=== PATIENT | female | born 1995 | race Caucasian/White ===

== ENCOUNTER 2017-06-27 03:10 | Emergency (ER) | payer OTHER, SELFPAY ==
[2017-06-27 03:11] VITALS: BP 117/78; PULSE 80; RESP 20; TEMP 36.6; O2SAT 97; BMI 30.1
--- NOTE | 2017-06-27 03:28 | ED.VISSUMM ---
- ER Visit Summary Date of Service: 06/27/17 Chief Complaint: [] Migraine headache History of Present Illness: The patient is a 22 F [] complaining of migraine headache for the last hour. She woke with it after sleep. As a throbbing sensation left frontal region. History of migraines but not since 2015. In that year she got frequent migraines. She was taking abortive therapy in the past but no longer. She started getting migraines at age 15. She noticed some tingling in her right hand that resolved prior to coming in. She has had that in the past with aura. She has never seen a neurologist. She has had no complications with this except for gestational diabetes. No history of preeclampsia. This is her first . She has photophobia and nausea that is mild. Tylenol has helped this evening. Physical Examination: [] Vital signs reviewed General: Well-nourished well-developed Head: Normocephalic atraumatic Eyes: Pupils equal round and reactive to light extraocular movements intact ENT: TMs clear no hemotympanum no trauma Neck: Nontender full range of motion Cardiovascular: Regular rate rhythm no murmurs normal S1-S2 Respiratory: No distress clear to auscultation bilaterally chest nontender Abdomen: Soft nontender nondistended normal bowel sounds no masses Back: Nontender no CVA tenderness Extremities: Nontender active range of motion ?4 extremities no trauma Skin: Normal color no trauma Neuro alert oriented cranial nerves II through XII intact normal strength sensation reflexes Test Results: [] Emergency Department Course and Treatment: [] Given IV fluids Phenergan Benadryl and Compazine. Upon re-Evaluation her headache is almost completely resolved. Blood pressures have remained normal. 117/78. I Have a low suspicion for preeclampsia. I do not feel she needs lab work or CT scan at do not feel she has intracranial hemorrhage. She is resting comfortably. She will follow-up as an outpatient. Discussed with Dr. Marroquin. Turn if she worsens. Treatment Plan: [] Disposition: [] Impression: [] Migraine headache This note was generated with [employer] software. It may contain incorrect words, spelling, and punctuation that were not noted in review of the chart prior to signing ED Disposition - Plan for ED Patient: Chief Complaint: Headache Referrals: Jarvis Amaarl MD [Primary Care Provider] -
[2017-06-27] MEDS: 0.9% Normal Saline 1,000 ML 999 ML IV (03:49)
[2017-06-27] MEDS: DiphenhydrAMINE 50 MG/ML Syringe 25 MG IV (03:50)
[2017-06-27] MEDS: proMETHazine 25 MG/ML Syringe 6.25 MG IV (03:51)
[2017-06-27] MEDS: proCHLORPERazine 10 MG/2 ML Vial IV (03:53)
--- NOTE | 2017-06-27 04:39 | ED.DEP ---
ED Disposition - Plan for ED Patient: Disposition: Home or Assisted Living Chief Complaint: Headache Instructions: ED Headache Migraine Referrals: Jarvis Amaral MD [Primary Care Provider] - Lashonda Marroquin MD [STAFF PHYSICIAN] -
[2017-06-27 04:47] VITALS: BP 127/72; PULSE 90; O2SAT 100
== END 2017-06-27 05:11 | disposition home or self-care (01) ==
PROVIDERS: Emergency Provider Emergency Medicine; Family Provider Family Medicine; PCP Family Medicine
DX: O99.89 Other specified diseases and conditions complicating pregnancy, childbirth and the puerperium (principal); G43.909 Migraine, unspecified, not intractable, without status migrainosus; R20.2 Paresthesia of skin; O24.419 Gestational diabetes mellitus in pregnancy, unspecified control; O99.330 Smoking (tobacco) complicating pregnancy, unspecified trimester; F17.200 Nicotine dependence, unspecified, uncomplicated; Z3A.00 Weeks of gestation of pregnancy not specified
CPT/HCPCS: 96361; 96374; 96375; 99285; J7030; A4216

== ENCOUNTER 2017-06-27 15:48 | Outpatient (RCR) | payer OTHER, MEDICAID, SELFPAY | END 2017-07-01 23:59 | LOC: DC 15:48 | PROVIDERS: Family Provider Family Medicine; PCP Family Medicine; Visit Provider Obstetrics & Gynecology | DX: O24.419 Gestational diabetes mellitus in pregnancy, unspecified control (principal); Z71.3 Dietary counseling and surveillance | CPT/HCPCS: G0108 ==

== ENCOUNTER 2017-07-05 10:40 | Outpatient (RCR) | payer OTHER, MEDICAID, SELFPAY | END 2017-07-19 23:59 | LOC: DC 10:40 | PROVIDERS: Family Provider Family Medicine; PCP Family Medicine; Visit Provider Obstetrics & Gynecology | DX: O24.419 Gestational diabetes mellitus in pregnancy, unspecified control (principal); Z3A.00 Weeks of gestation of pregnancy not specified; Z71.3 Dietary counseling and surveillance | CPT/HCPCS: 97802 ==

== ENCOUNTER → 2017-07-05 17:49 | Outpatient (CLI) | payer OTHER, MEDICAID, SELFPAY | PROVIDERS: Visit Provider Nurse Practitioner Women's Health | DX: Z34.93 Encounter for supervision of normal pregnancy, unspecified, third trimester (principal) | CPT/HCPCS: 87086; 87088 ==

== ENCOUNTER → 2017-07-19 17:55 | Outpatient (CLI) | payer OTHER, MEDICAID, SELFPAY ==
[2017-07-19 20:29] LABS: Chlamydia Trachomatis by PCR Negative (Negative); Neisserai gonorrhoeae by PCR Negative (Negative); Probe Check PASS; Sample Adequacy Control PASS; Specimen Processing Control PASS
== END ==
PROVIDERS: Visit Provider Obstetrics & Gynecology
DX: Z34.93 Encounter for supervision of normal pregnancy, unspecified, third trimester (principal)
CPT/HCPCS: 87491; 87591

== ENCOUNTER → 2017-08-02 18:02 | Outpatient (CLI) | payer OTHER, MEDICAID, SELFPAY ==
[2017-08-02 20:37] LABS: Chlamydia Trachomatis by PCR Negative (Negative); Neisserai gonorrhoeae by PCR Negative (Negative); Probe Check PASS; Sample Adequacy Control PASS; Specimen Processing Control PASS
== END ==
PROVIDERS: Family Provider Family Medicine; PCP Family Medicine; Visit Provider Obstetrics & Gynecology
DX: Z34.93 Encounter for supervision of normal pregnancy, unspecified, third trimester (principal)
CPT/HCPCS: 87491; 87591

== ENCOUNTER → 2017-08-09 14:30 | Outpatient (CLI) | payer OTHER, MEDICAID, SELFPAY ==
--- NOTE | 2017-08-09 14:30 | DT_ITS ---
This patient was seen during an EMR downtime August 05, 2017 - August 12, 2017. This patient may have a combination of paper and electronic documentation or all paper documentation. All documentation is viewable within the e-chart portion of [facility] for each patient visit.
== END ==
PROVIDERS: Visit Provider Obstetrics & Gynecology
DX: Z34.03 Encounter for supervision of normal first pregnancy, third trimester (principal)

== ENCOUNTER → 2017-08-09 16:02 | Outpatient (CLI) | payer OTHER, MEDICAID, SELFPAY ==
--- NOTE | 2017-08-09 16:02 | DT_ITS ---
This patient was seen during an EMR downtime August 05, 2017 - August 12, 2017. This patient may have a combination of paper and electronic documentation or all paper documentation. All documentation is viewable within the e-chart portion of [facility] for each patient visit.
--- NOTE | 2017-08-09 16:06 | US_ITS ---
STUDY: SECOND AND THIRD TRIMESTER OBSTETRICAL ULTRASOUND - LIMITED REASON FOR EXAM: Female, 22 years old. GROWTH...HX OF GES DIABETES LMP: PRIOR ULTRASOUND: None. TECHNIQUE: Transabdominal ultrasound evaluation was performed. FINDINGS: There is a single intrauterine fetus. The fetus is in an transverse lie with the head on the maternal left side. There is demonstrated cardiac activity with a heart rate of 150 bpm. There is a normal amniotic fluid volume. The largest amniotic fluid pocket measures 9.2 cm. The amniotic fluid index (LILIANA) is 12.8 cm. The placenta is anterior in location and is not low lying. There are Grade 2 placental changes. The cervix measures 30 cm in length. BIOMETRY: BPD: 90mm: 36 weeks, 4 days HC: 336mm: 38 weeks, 4 days AC: 336mm: 37 weeks, 4 days FL: 68mm: 35 weeks, 1 days Age by LMP: 36 weeks, 3 days. SHELLY by LMP: 7.3.18. age by current US: 37 weeks, 0 days. SHELLY by current US: 6.29.18. Estimated weight: 3071 grams, +/- 448 grams, 67 percentile. US/OB Limited With Biometrics IMPRESSION: There is a single live intrauterine with a heart rate of 150 bpm. age by current US: 37 weeks, 0 days. SHELLY by current US: 6.29.18. Estimated weight: 3071 grams, +/- 448 grams, 67 percentile. Electronically Signed: Brennen Moreno MD at 22:45 EDT , Service support ,
[2017-08-10 11:11] LABS: Group B Strep DNA By PCR Negative (Negative); Internal Control PASS; Probe Check PASS; Specimen Processing Control PASS
== END ==
PROVIDERS: Family Provider Family Medicine; PCP Family Medicine; Visit Provider Obstetrics & Gynecology
DX: Z34.90 Encounter for supervision of normal pregnancy, unspecified, unspecified trimester (principal); O24.419 Gestational diabetes mellitus in pregnancy, unspecified control; Z3A.00 Weeks of gestation of pregnancy not specified
CPT/HCPCS: 76816; 87077; 87081; 87186; 87653

== ENCOUNTER 2017-08-12 07:35 | Outpatient (CLI) | payer OTHER, MEDICAID, SELFPAY ==
--- NOTE | 2017-08-12 07:35 | DT_ITS ---
This patient was seen during an EMR downtime August 05, 2017 - August 12, 2017. This patient may have a combination of paper and electronic documentation or all paper documentation. All documentation is viewable within the e-chart portion of [facility] for each patient visit.
[2017-08-12] MEDS: Lactated Ringers 1,000 ML 125 ML IV (07:50)
[2017-08-12] MEDS: Terbutaline 1 MG/ML Vial 0.25 MG SC (08:00)
[2017-08-12 08:17] LABS: Hematocrit 37.2 % (37-47); Hemoglobin 12.5 g/dl (12.0-15.0); Mean Corp Hgb Conc 33.6 g/gl (32-36); Mean Corpuscular Hgb 31.9 pg (27.0-32.0); Mean Corpuscular Volume 94.9 fL (81-99); Mean Platelet Vol. 11.6 fl (6.2-12.0); Platelet Count 236 K/mm3 (150-450); RBC Distribution Width CV 12.8 % (11.6-14.6); RBC Distribution Width SD 43.2 fl (35.1-43.9); Red Blood Count 3.92 M/mm3 (4.2-5.4)
[2017-08-12 08:20] LABS: Scan Indicated on CBC? Y/N NO
[2017-08-12 10:28] VITALS: BMI 29.5
--- NOTE | 2017-08-14 04:49 | OB.TRI.NOTE ---
- Problem List (1) Breech presentation Status: Acute Comment: unsuccessful version recommend primary csection History of Present Illness Date of Service: 08/12/17 Was patient seen by the physician?: Yes Reason For Visit: VERSION Date of Service: 08/12/17 Final SHELLY: 09/03/17 Gestational age: 37 Weeks and 1 Days History of Present Illness: 22 yo @ 37 weeks presents with breech presentation requesting ECV. Allergies No Known Allergies Allergy (Verified 08/02/17 14:52) - Pertinent Past Medical History Surgical History: Past Surgical History (Last Reviewed 08/02/17 @ 14:52 by Andreia Rossi) [place] teeth extracted Physical Exam General: Alert, Cooperative, No apparent distress HEENT: Atraumatic, Normocephalic. Negative for: Thyromegaly, Lymphadenopathy Cardiovascular: Regular rate Lungs: Normal air movement Abdomen: Soft, Non Tender, Gravid Neurological: Deep Tendon Reflexes 2+/4 and Symmetrical, Neuro grossly intact. Negative for: Clonus UNDERWRITING SPECIALIST: Normal external genitalia. Negative for: Vulvar lesions Estimated gestational size: Appropriate for gestational size Presentation: Cephalic NST - FHR Rate Baby A Baseline: 140 Variability:: Moderate Accelerations:: 15 x 15 Decelerations:: None NST Reactive:: Yes FHR Category:: Category I Uterine Activity:: no regular Impression/Plan 22 yo at 37weeks in breech prsentation terbutaline given, under ultrasound guidance- external cephalic version attempted for 15 minutes both forward and backwards roll attempted with no success in turning. reactive NST afterwards and rhogam given. counseled patient for primary cs at 39 weeks if persistent.
--- NOTE | 2017-08-14 04:52 | OB.TRI.HP_ITS ---
- Problem List (1) Breech presentation Status: Acute Comment: unsuccessful version recommend primary csection History of Present Illness Date of Service: 08/12/17 Was patient seen by the physician?: Yes Reason For Visit: VERSION Date of Service: 08/12/17 Final SHELLY: 09/03/17 Gestational age: 37 Weeks and 1 Days History of Present Illness: 22 yo @ 37 weeks presents with breech presentation requesting ECV. Allergies No Known Allergies Allergy (Verified 08/02/17 14:52) - Pertinent Past Medical History Surgical History: Past Surgical History (Last Reviewed 08/02/17 @ 14:52 by Andreia Rossi) [place] teeth extracted Physical Exam General: Alert, Cooperative, No apparent distress HEENT: Atraumatic, Normocephalic. Negative for: Thyromegaly, Lymphadenopathy Cardiovascular: Regular rate Lungs: Normal air movement Abdomen: Soft, Non Tender, Gravid Neurological: Deep Tendon Reflexes 2+/4 and Symmetrical, Neuro grossly intact. Negative for: Clonus FRUIT CANNER: Normal external genitalia. Negative for: Vulvar lesions Estimated gestational size: Appropriate for gestational size Presentation: Cephalic NST - FHR Rate Baby A Baseline: 140 Variability:: Moderate Accelerations:: 15 x 15 Decelerations:: None NST Reactive:: Yes FHR Category:: Category I Uterine Activity:: no regular Impression/Plan 22 yo at 37weeks in breech prsentation terbutaline given, under ultrasound guidance- external cephalic version attempted for 15 minutes both forward and backwards roll attempted with no success in turning. reactive NST afterwards and rhogam given. counseled patient for primary cs at 39 weeks if persistent.
== END 2017-08-12 10:05 | disposition home or self-care (01) ==
LOC: WPOUT 07:41 → WP 07:49
PROVIDERS: Family Provider Family Medicine; PCP Family Medicine; Visit Provider Obstetrics & Gynecology
DX: O32.1XX0 Maternal care for breech presentation, not applicable or unspecified (principal); Z3A.37 37 weeks gestation of pregnancy
CPT/HCPCS: 36415; 59025; 59412; 85027; 86850; 86900; 90384; 96372; 99218; G0378; J2790

== ENCOUNTER 2017-08-27 05:25 | Inpatient (IN) | payer OTHER, MEDICAID, SELFPAY ==
[2017-08-27] VITALS (21 sets, daily range): BP systolic 86–112; BP diastolic 44–73; PULSE 67–99; RESP 15–20; TEMP 35.7–37.1; O2SAT 97–100; BMI 29.8
[2017-08-27] MEDS: Lactated Ringers 1,000 ML 999 ML IV (05:50)
[2017-08-27 06:30] LABS: Bedside Glucose 85 mg/dL (70-110)
[2017-08-27 06:31] LABS: Absolute Lymphocyte Count 3.36 X10^3/ul (0.83-4.51); Absolute Neutrophil Count 12.2 X10^3/uL (2.0-7.7); Basophil# 0.07 X10^3/uL; Basophil% 0.4 % (0-1); Eosinophil# 0.25 X10^3/uL; Eosinophils% 1.4 % (0-5); Hematocrit 36.9 % (37-47); Hemoglobin 12.4 g/dl (12.0-15.0); Lymphocyte # 3.36 X10^3/ul (4.0); Lymphocyte % 19.2 % (19-41); Mean Corp Hgb Conc 33.6 g/gl (32-36); Mean Corpuscular Hgb 31.7 pg (27.0-32.0); Mean Corpuscular Volume 94.4 fL (81-99); Mean Platelet Vol. 11.2 fl (6.2-12.0); Monocyte# 1.32 X10^3/uL; Monocyte% 7.5 % (0-10); Neutrophil # 12.19 X10^3/uL (2.7-7.7); Neutrophil % 69.7 % (47-70); Platelet Count 250 K/mm3 (150-450); RBC Distribution Width SD 43.9 fl (35.1-43.9); Red Blood Count 3.91 M/mm3 (4.2-5.4); White Blood Count 17.5 K/mm3 (4.4-11.0)
[2017-08-27 06:37] LABS: POSITIVE COUNT NO; POSITIVE DIFFERENTIAL NO; POSITIVE MORPHOLOGY NO
[2017-08-27] MEDS: Lactated Ringers 1,000 ML 150 ML IV (06:50)
--- NOTE | 2017-08-27 07:03 | PCM.HP.OB ---
- Problem List (1) Breech presentation Status: Acute Qualifiers: Comment: unsuccessful version recommend primary csection (2) GBS (group B Streptococcus carrier), +RV culture, currently Status: Acute (3) Gestational diabetes mellitus in , diet controlled Status: Acute Qualifiers: Comment: growth US and FBS 2hr PPG, diet (4) Rh negative status during Status: Acute Qualifiers: Comment: rhogam at 28 weeks (5) Tobacco use complicating Status: Acute Qualifiers: Comment: encouraged cessation (6) Supervision of normal in third trimester Status: Acute Qualifiers: Comment: PRR SHELLY 09/03/17 boy Kamilla boyfriend Xu SUKHI [facility] History Date of Admission: 08/27/17 Final SHELLY: 09/03/17 Gestational age: 39 Weeks and 0 Days History of this : This is a 22 year-old, , at 39 weeks gestational age presents breech for primary c section Surgical History: Surgical History (Last Reviewed 08/23/17 @ 15:18 by Maye Camacho) [place] teeth extracted K08.409 Allergies No Known Allergies Allergy (Verified 08/27/17 06:58) Home Medications: Home Medications blood sugar diagnostic strips See Dose Instructions .ROUTE .MEDSUPPLY #100 ea 06/25/17 blood-glucose meter See Dose Instructions .ROUTE .MEDSUPPLY #1 ea 06/25/17 blood sugar diagnostic strips See Dose Instructions .ROUTE .MEDSUPPLY #100 ea 06/26/17 blood-glucose meter See Dose Instructions .ROUTE .MEDSUPPLY #1 ea 06/26/17 Vits [Prenatabs FA] 1 tab PO DAILY 08/22/17 Smoking Status: Current every day smoker Alcohol: None Number of Fetus(es): 1 Heart Tracin History Past Pregnancies: Past Pregnancies Labs: Mom's Labs & Results 08/27/17 08/27/17 08/27/17 06:00 06:00 06:20 WBC 17.5 H RBC 3.91 L Hgb 12.4 Hct 36.9 L MCV 94.4 MCH 31.7 MCHC 33.6 RDW 13.0 RDW Differential 43.9 Plt Count 250 MPV 11.2 Immature Gran % (Auto) 1.800 H Neut % (Auto) 69.7 Lymph % (Auto) 19.2 [place] % (Auto) 7.5 Eos % (Auto) 1.4 Baso % (Auto) 0.4 Absolute Neuts (auto) 12.2 H Absolute Lymphs (auto) 3.36 Total Counted Not Reportable POC Glucose 85 Blood Type Pending Antibody Screen Pending Course Did the patient receive Yes care? Labs Blood Type: A RH: NEGATIVE RPR/VDRL/Syphilis Nonreactive Rubella status Immune HbSAg Negative Date Done: 03/12/17 Chlamydia Negative Gonorrhea Negative HIV/AIDS Non-Reactive Group B Strep: Negative Current Obstetrical History Gestational Diabetes Yes Incompetent Cervix No Infertility No IUGR No Macrosomia No Hypertension/Pre-eclampsia No Placenta Previa/Abruption No PTL/PROM No Uterine anomaly No Oligohydramnios No Polyhydramnios No Multiple gestation No Past Medical History Asthma No Diabetes No Hypertension No Heart disease No Mitral valve prolapse No Neurologic/Seizure disorder/ No Migraines Kidney disease No Liver disease No Varicosities No Clotting disorders/Hx of DVT No Thyroid Dysfunction No Other medical diseases No Psychiatric disorders No Major trauma No Abnormal PAP smear No Sleep apnea No Mammogram in the last 2 years No Social History Marital Status: SINGLE Alleged father Xu Gomez Hx Smoking Yes Smoking Status Current every day smoker How long have you used no substances (years)? What date/time did you last no use any of the above? Expected Infant Delivery Method: Scheduled Section, Primary Section Review of Systems Constitutional: Denies: Fever, Malaise Eyes: Denies: Blurred vision, Vision Change HEENT: Denies: Head Aches, Visual Changes Cardiovascular: Denies: Chest Pain, Palpitations Respiratory: Denies: Cough, Shortness of Breath, Wheezing Gastrointestinal: Denies: Abdominal Pain, Diarrhea, Nausea, Vomiting Genitourinary: Denies: Dysuria, Hematuria Musculoskeletal: Denies: Joint Pain, Muscle pain Skin: Denies: Lesions, Rash Neurological: Denies: Blurred vision, Focal weakness, Headaches Psychiatric: Denies: Anxiety, Depression Endocrine: Denies: Heat/ Cold Intolerance Hematologic/ Lymphatic: Denies: Easy Bruising, Easy Bleeding Physical Exam General: Alert, Cooperative, No apparent distress HEENT: Atraumatic, Normocephalic. Negative for: Thyromegaly, Lymphadenopathy Cardiovascular: Regular rate Lungs: Normal air movement Abdomen: Soft, Non Tender, Gravid Neurological: Deep Tendon Reflexes 2+/4 and Symmetrical, Neuro grossly intact. Negative for: Clonus PRACTICE LEAD: Normal external genitalia. Negative for: Vulvar lesions Estimated gestational size: Appropriate for gestational size Presentation: Cephalic Assessment/Plan All Active Problems (Last Reviewed 08/23/17 @ 15:18 by Maye Camacho) Breech presentation (Acute) GBS (group B Streptococcus carrier), +RV culture, currently (Acute) Gestational diabetes mellitus in , diet controlled (Acute) Rh negative status during (Acute) Tobacco use complicating (Acute) Supervision of normal in third trimester (Acute) This is a 22 year-old, at 39 weeks gestational age breech plan LTCS gdma1 check BS
--- NOTE | 2017-08-27 07:07 | OP.PCM_ITS ---
Problem List (1) Breech presentation Status: Acute Qualifiers: Comment: unsuccessful version recommend primary csection (2) GBS (group B Streptococcus carrier), +RV culture, currently Status: Acute (3) Gestational diabetes mellitus in , diet controlled Status: Acute Qualifiers: Comment: growth US and FBS 2hr PPG, diet (4) Rh negative status during Status: Acute Qualifiers: Comment: rhogam at 28 weeks (5) Tobacco use complicating Status: Acute Qualifiers: Comment: encouraged cessation (6) Supervision of normal in third trimester Status: Acute Qualifiers: Comment: PRR SHELLY 09/03/17 ольга Kohli boyfrienovidio Mcnair SUKHI [facility] Report of Operation Date of Procedure: 08/27/17 Pre-Operative Diagnosis: breech Post-Operative Diagnosis: same Surgery/Procedure Performed:: ltcs Description of Surgical Findings:: normal uterus tubes ovaries data warehouse analyst: Robb Ford Type of Anesthesia:: Spinal Specimen's removed: male breech Drains: inman Estimated Blood Loss (mL): 800 Fluids Replaced: crystalloid Description of Procedure: The patient is a presented for primary due to breech. Spinal anesthesia was placed without difficulty. Inman catheter was placed. The patient was placed in the dorsal supine position with leftward tilt. Patient was prepped and draped in the normal sterile fashion. Pfannenstiel skin incision was made with the scalpel and carried through to the underlying layer of fascia with the scalpel. Fascia was nicked in the midline and the incision extended laterally. The rectus bellies were dissected off superiorly and inferiorly with out complication both sharply and bluntly. The peritoneum was entered digitally. The incision was stretched and a low transverse uterine incision was made with the scalpel. The 's buttocks was delivered atraumatically followed by the anterior and posterior shoulders without complication the rest of the infant delivered. The cord was clamped and cut and the infant was handed off to awaiting nurse. The placenta was delivered spontaneously immediately following and was noted to be intact and have a three- vessel cord. The uterus was exteriorized cleared of all clots and debris, and the incision was closed in a double layer closure using #1 Monocryl. The uterus was returned to the maternal abdomen and gutters were cleared of all clots and debris. The ovaries and fallopian tubes were noted to be within normal limits. The peritoneum was closed with 3-0 Monocryl in a running fashion. Fascia was closed with 0 PDS in a running fashion. Subcutaneous tissue was copiously irrigated and the skin was closed with 3-0 Monocryl in a subcuticular fashion. Steri-Strips and Mepilex dressing were applied without complication. Patient was taken to recovery in stable condition.
[2017-08-27] MEDS: Sodium Citrate/Citric Acid 30 ML UDC PO (07:12)
[2017-08-27] MEDS: Cefazolin 2 GM in 0.9% Normal Saline 100 ML IV (07:25)
[2017-08-27] MEDS: Oxytocin 30 units/NS 500 ml 30 UNITS/500 ML IV.SOLN 167 UNITS IV (07:48)
[2017-08-27] MEDS: Lactated Ringers 1,000 ML 100 ML IV ×2 (08:35→18:03)
--- NOTE | 2017-08-27 09:02 | NURSING ---
normal sinus rhythm noted and strip printed
[2017-08-27 09:51] LABS: Bedside Glucose 87 mg/dL (70-110)
[2017-08-27] MEDS: Ketorolac 30 MG/ML Syringe IV ×2 (12:24→18:03)
[2017-08-27] MEDS: 0.9% Saline Lock 10 ML Syringe IV ×2 (12:24→18:03)
[2017-08-28] VITALS (8 sets, daily range): BP systolic 98–118; BP diastolic 54–80; PULSE 77–88; RESP 16–20; TEMP 36.9–37.3; O2SAT 95–100
[2017-08-28] MEDS: Ketorolac 30 MG/ML Syringe IV ×4 (00:07→18:24)
[2017-08-28] MEDS: 0.9% Saline Lock 10 ML Syringe IV ×4 (03:39→18:24)
[2017-08-28 05:36] LABS: Bedside Glucose 98 mg/dL (70-110)
[2017-08-28 05:42] LABS: Hematocrit 33.8 % (37-47); Hemoglobin 11.3 g/dl (12.0-15.0); Mean Corp Hgb Conc 33.4 g/gl (32-36); Mean Corpuscular Hgb 32.2 pg (27.0-32.0); Mean Corpuscular Volume 96.3 fL (81-99); Mean Platelet Vol. 11.1 fl (6.2-12.0); Platelet Count 235 K/mm3 (150-450); RBC Distribution Width CV 13.3 % (11.6-14.6); RBC Distribution Width SD 44.2 fl (35.1-43.9); Red Blood Count 3.51 M/mm3 (4.2-5.4); White Blood Count 17.2 K/mm3 (4.4-11.0)
[2017-08-28 05:50] LABS: Scan Indicated on CBC? Y/N NO
[2017-08-28] MEDS: Senna/Docusate Sodium 1 Tablet PO (09:04)
[2017-08-28] MEDS: oxyCODONE 5 MG Tablet PO ×3 (09:05→20:55)
--- NOTE | 2017-08-28 09:59 | PCM.PN.OB ---
Subjective: No CP, SOB. Pain controlled. Voiding, ambulating well. - Physical Exam General: Alert, Oriented x3 Abdomen: Soft - Minimal tenderness. FF below U. Dressing dry and intact. Vital Signs Temp Pulse Resp BP Pulse Ox 99.2 F H 83 16 108/61 98 08/28/17 08:00 08/28/17 08:00 08/28/17 08:00 08/28/17 08:00 08/28/17 06:00 Oxygen Delivery Method Room Air Weight: 184 lb 11.958 oz Body Mass Index (BMI) 29.8 Intake and Output for Last 24 Hours 08/26/17 08/27/17 08/28/17 23:59 23:59 23:59 Intake Total 2730 / 2730 951 / 951 Output Total 1120 / 1120 1550 / 1550 Balance 1610 / 1610 -599 / -599 Laboratory Tests Past 24 Hrs 08/28/17 05:20 WBC 17.2 H RBC 3.51 L Hgb 11.3 L Hct 33.8 L MCV 96.3 MCH 32.2 H MCHC 33.4 RDW 13.3 RDW Differential 44.2 H Plt Count 235 MPV 11.1 POC Glucose 08/28/17 05:21 POC Glucose 98 Medical Necessity - Tobacco Use Smoking Status: Current every day smoker Assessment/Plan All Active Problems (Last Reviewed 08/23/17 @ 15:18 by Maye Camacho) Breech presentation (Acute) GBS (group B Streptococcus carrier), +RV culture, currently (Acute) Gestational diabetes mellitus in , diet controlled (Acute) Rh negative status during (Acute) Tobacco use complicating (Acute) Supervision of normal in third trimester (Acute) P CS, breech presentation, POD #1: Doing well. Routine care. . Rh negative.
[2017-08-29] MEDS: Ketorolac 30 MG/ML Syringe IV ×2 (00:21→06:07)
[2017-08-29] MEDS: 0.9% Saline Lock 10 ML Syringe IV ×2 (00:21→06:07)
[2017-08-29 02:35] VITALS: BP 111/57; PULSE 73; RESP 18; TEMP 36.8; O2SAT 96
[2017-08-29 07:51] VITALS: BP 111/64; PULSE 71; RESP 16; TEMP 36.8; O2SAT 94
[2017-08-29] MEDS: Senna/Docusate Sodium 1 Tablet PO ×2 (07:52→22:42)
[2017-08-29] MEDS: oxyCODONE 5 MG Tablet PO ×3 (07:53→22:42)
[2017-08-29 11:00] VITALS: BP 114/79; PULSE 82; RESP 16; TEMP 37.1; O2SAT 100
--- NOTE | 2017-08-29 12:25 | PCM.PN.OB ---
Subjective: No CP, SOB. States chest feels heavy like getting a cold. No nausea. Ambulating, voiding well - Physical Exam General: Alert, Oriented x3 Lungs: Clear to auscultation, Normal air movement, No rhonchi, No wheeze, No rales Cardiovascular: Regular rate, Regular Rhythm Abdomen: Soft, Non Tender, - - FF below U; Minimal tenderness with exam Vital Signs Temp Pulse Resp BP Pulse Ox 98.2 F 71 16 111/64 94 08/29/17 07:51 08/29/17 07:51 08/29/17 07:51 08/29/17 07:51 08/29/17 07:51 Oxygen Delivery Method Room Air Weight: 184 lb 11.958 oz Body Mass Index (BMI) 29.8 Intake and Output for Last 24 Hours 08/27/17 08/28/17 08/29/17 23:59 23:59 23:59 Intake Total 2730 / 2730 951 / 951 Output Total 1120 / 1120 2049 / 2049 Balance 1610 / 1610 -1099 / -1099 Medical Necessity - Tobacco Use Smoking Status: Current every day smoker Assessment/Plan All Active Problems (Last Reviewed 08/23/17 @ 15:18 by Maye Camacho) Breech presentation (Acute) GBS (group B Streptococcus carrier), +RV culture, currently (Acute) Gestational diabetes mellitus in , diet controlled (Acute) Rh negative status during (Acute) Tobacco use complicating (Acute) Supervision of normal in third trimester (Acute) PCS POD#2: Doing well. Lungs clear, normal heart rate. Encourage use of spirometer. Rh negative.
[2017-08-29] MEDS: Naproxen 250 MG Tablet PO (13:12)
[2017-08-29 14:10] VITALS: BP 113/75; PULSE 75; RESP 16; TEMP 37.2; O2SAT 99
[2017-08-29 22:27] VITALS: BP 116/83; PULSE 103; RESP 18; TEMP 36.6; O2SAT 100
[2017-08-30 02:55] VITALS: BP 105/48; PULSE 85; RESP 16; TEMP 36.5; O2SAT 96
--- NOTE | 2017-08-30 08:05 | PCM.PN.OB ---
Subjective: No CP, SOB, nausea. is going better. Ambulating, voiding. Some flatus. - Physical Exam General: Alert, Oriented x3 Abdomen: Soft, Non Tender, - - FF below U. Dressing dry and intact. Vital Signs Temp Pulse Resp BP Pulse Ox 97.7 F L 85 16 105/48 L 96 08/30/17 02:55 08/30/17 02:55 08/30/17 02:55 08/30/17 02:55 08/30/17 02:55 Oxygen Delivery Method Room Air Weight: 184 lb 11.958 oz Body Mass Index (BMI) 29.8 Intake and Output for Last 24 Hours 08/28/17 08/29/17 08/30/17 23:59 23:59 23:59 Intake Total 951 / 951 Output Total 2049 / 2049 Balance -1099 / -1099 Medical Necessity - Tobacco Use Smoking Status: Current every day smoker Assessment/Plan All Active Problems (Last Reviewed 08/23/17 @ 15:18 by Maye Camacho) Breech presentation (Acute) GBS (group B Streptococcus carrier), +RV culture, currently (Acute) Gestational diabetes mellitus in , diet controlled (Acute) Rh negative status during (Acute) Tobacco use complicating (Acute) Supervision of normal in third trimester (Acute) PCS for breech presentation. POD #3:Plans home today. Instruct on start of progesterone only OCP at 4 wk pp. Office visit 2 and 6 wk pp
--- NOTE | 2017-08-30 08:11 | PCM.DCCSEC ---
Additional Instructions: If you experience any of the following, contact your healthcare provider. Bleeding that soaks a pad every hour for 2 hours Fever 100.4 or higher Unrelieved incision or abdominal pain Swelling, redness, discharge or bleeding from your incision or episiotomy site Your incision begins to separate Problems urinating (including inability to urinate or burning while urinating). Visual changes Severe headache Flu-like symptoms Pain or redness in one of both of your breasts Pain, warmth, tenderness or swelling in your legs, especially the calf area Frequent nausea and vomiting Symptoms of depression or anxiety If you experience any of the following, call 911 or go to the nearest Emergency Room. Chest pain Problems breathing Seizure activity Partial or complete paralysis of a body part, slurred speech, weakness or drooping of the face, or a sudden inability to walk or hold your balance Allergies/Adverse Reactions: Allergies No Known Allergies Allergy (Verified 08/27/17 06:58) Medications to take at Discharge blood sugar diagnostic strips See Dose Instructions .ROUTE .MEDSUPPLY #100 ea 06/25/17 blood-glucose meter See Dose Instructions .ROUTE .MEDSUPPLY #1 ea 06/25/17 blood sugar diagnostic strips See Dose Instructions .ROUTE .MEDSUPPLY #100 ea 06/26/17 blood-glucose meter See Dose Instructions .ROUTE .MEDSUPPLY #1 ea 06/26/17 Vits [Prenatabs FA] 1 tab PO DAILY 08/22/17 Follow-Up: Call to make an appointment with your doctor for an incision check in 1-2 weeks. You will also need a 6 week post- follow up appointment. Primary Care Physician: Jarvis Amaral MD [Primary Care Provider] -
--- NOTE | 2017-08-30 08:12 | DCINST_ITS ---
Additional Instructions: If you experience any of the following, contact your healthcare provider. * Bleeding that soaks a pad every hour for 2 hours * Fever 100.4 or higher * Unrelieved incision or abdominal pain * Swelling, redness, discharge or bleeding from your incision or episiotomy site * Your incision begins to separate * Problems urinating (including inability to urinate or burning while urinating) . * Visual changes * Severe headache * Flu-like symptoms * Pain or redness in one of both of your breasts * Pain, warmth, tenderness or swelling in your legs, especially the calf area * Frequent nausea and vomiting * Symptoms of depression or anxiety If you experience any of the following, call 911 or go to the nearest Emergency Room. * Chest pain * Problems breathing * Seizure activity * Partial or complete paralysis of a body part, slurred speech, weakness or drooping of the face, or a sudden inability to walk or hold your balance Allergies/Adverse Reactions: Allergies No Known Allergies Allergy (Verified 08/27/17 06:58) Medications to take at Discharge blood sugar diagnostic strips See Dose Instructions .ROUTE .MEDSUPPLY #100 ea blood-glucose meter See Dose Instructions .ROUTE .MEDSUPPLY #1 ea 06/25/17 blood sugar diagnostic strips See Dose Instructions .ROUTE .MEDSUPPLY #100 ea blood-glucose meter See Dose Instructions .ROUTE .MEDSUPPLY #1 ea 06/26/17 Vits [Prenatabs FA] 1 tab PO DAILY 08/22/17 Follow-Up: Call to make an appointment with your doctor for an incision check in 1-2 weeks. You will also need a 6 week post- follow up appointment. Primary Care Physician: Jarvis Amaral MD [Primary Care Provider] -
[2017-08-30] MEDS: Senna/Docusate Sodium 1 Tablet PO (09:52)
[2017-08-30] MEDS: Naproxen 250 MG Tablet PO (09:52)
[2017-08-30 10:00] VITALS: BP 116/81; PULSE 86; RESP 16; TEMP 36.6
== END 2017-08-30 10:20 | disposition home or self-care (01) | DRG 765 ==
PROVIDERS: Admitting Provider Obstetrics & Gynecology; Family Provider Family Medicine; PCP Family Medicine; Visit Provider Obstetrics & Gynecology
PROC: 10D00Z1 Extraction of Products of Conception, Low, Open Approach (ICD-10-PCS; CPT 59514; principal; 2017-08-27 07:15)
DX: O32.1XX0 Maternal care for breech presentation, not applicable or unspecified (principal); O36.0930 Maternal care for other rhesus isoimmunization, third trimester, not applicable or unspecified; O99.824 Streptococcus B carrier state complicating childbirth; O24.420 Gestational diabetes mellitus in childbirth, diet controlled; O99.334 Smoking (tobacco) complicating childbirth; F17.210 Nicotine dependence, cigarettes, uncomplicated; Z3A.39 39 weeks gestation of pregnancy; Z37.0 Single live birth
CPT/HCPCS: 82962; 85025; 85027; 86850; 86870; 86900; 99218; J7120; A4216; G0378

== ENCOUNTER 2017-09-03 11:30 | Outpatient (CLI) | payer OTHER, MEDICAID, SELFPAY | END 2017-09-03 12:30 | disposition home or self-care (01) | LOC: WPOUT 11:31 → WP 11:32 | PROVIDERS: Family Provider Family Medicine; PCP Family Medicine; Visit Provider Obstetrics & Gynecology | DX: Z39.1 Encounter for care and examination of lactating mother (principal) | CPT/HCPCS: 96152 ==

== ENCOUNTER → 2017-09-24 17:04 | Outpatient (CLI) | payer OTHER, MEDICAID, SELFPAY | PROVIDERS: Family Provider Family Medicine; PCP Family Medicine; Visit Provider Obstetrics & Gynecology | DX: T81.4XXA Infection following a procedure, initial encounter (principal) | CPT/HCPCS: 87070; 87075; 87077; 87186; 87205 ==

== ENCOUNTER → 2017-10-18 07:40 | Outpatient (CLI) | payer OTHER, MEDICAID, SELFPAY ==
[2017-10-18 10:31] LABS: Glucose 2 Hour Postprandial 78 mg/dL (<140)
== END ==
PROVIDERS: Family Provider Family Medicine; PCP Family Medicine; Visit Provider Obstetrics & Gynecology
DX: O24.419 Gestational diabetes mellitus in pregnancy, unspecified control (principal); Z3A.00 Weeks of gestation of pregnancy not specified
CPT/HCPCS: 36415; 82950

== ENCOUNTER → 2019-03-05 17:08 | Outpatient (CLI) | payer OTHER, SELFPAY ==
[2019-03-05 08:14] VITALS: BMI 26.0
[2019-03-10 14:28] LABS: HPV Reflexed? NOT INDICATED
== END ==
PROVIDERS: Family Provider Family Medicine; PCP Family Medicine; Referring Provider Obstetrics & Gynecology; Visit Provider Obstetrics & Gynecology
DX: N89.8 Other specified noninflammatory disorders of vagina (principal); Z12.4 Encounter for screening for malignant neoplasm of cervix
CPT/HCPCS: 87070; 87205; 88175; G0145

== ENCOUNTER → 2019-04-06 15:34 | Outpatient (CLI) | payer OTHER, SELFPAY ==
[2019-04-06 15:13] VITALS: BMI 26.0
[2019-04-06 17:38] LABS: HIV - WCH Non-Reactive (Nonreactive)
[2019-04-06 20:34] LABS: Chlamydia Trachomatis by PCR Negative (Negative); Neisserai gonorrhoeae by PCR Negative (Negative); Probe Check PASS; Sample Adequacy Control PASS; Specimen Processing Control PASS
[2019-04-09 03:06] LABS: HCV Quant. RNA PCR HCV Not Detected IU/mL (.); HEPATITIS B SURFACE AG Negative (Negative); Hepatitis A IgM Antibody Negative (Negative); Hepatitis B Core AB IgM Negative (Negative)
[2019-04-09 03:50] LABS: Rapid Plasmin Reagin (RPR) NONREACTIVE (NONREACTIVE)
[2019-04-09 16:04] LABS: Hep C Antibodies <0.1 s/co ratio (0.0-0.9)
== END ==
PROVIDERS: PCP Family Medicine; Referring Provider Obstetrics & Gynecology; Visit Provider Obstetrics & Gynecology
DX: Z11.3 Encounter for screening for infections with a predominantly sexual mode of transmission (principal)
CPT/HCPCS: 36415; 80074; 86592; 86703; 87491; 87522; 87591

== ENCOUNTER → 2019-05-12 16:36 | Outpatient (CLI) | payer OTHER, MEDICAID, SELFPAY ==
[2019-04-06 15:13] VITALS: BMI 26.0
[2019-05-12 17:39] LABS: hCG Titer Quant., Serum 17 mIU/mL (1-3)
== END ==
PROVIDERS: PCP Family Medicine; Referring Provider Obstetrics & Gynecology; Visit Provider Obstetrics & Gynecology
DX: N91.2 Amenorrhea, unspecified (principal)
CPT/HCPCS: 36415; 84702

== ENCOUNTER → 2019-05-14 16:42 | Outpatient (CLI) | payer OTHER, MEDICAID, SELFPAY ==
[2019-04-06 15:13] VITALS: BMI 26.0
[2019-05-14 18:36] LABS: hCG Titer Quant., Serum 20 mIU/mL (1-3)
== END ==
PROVIDERS: PCP Family Medicine; Referring Provider Obstetrics & Gynecology; Visit Provider Obstetrics & Gynecology
DX: O20.0 Threatened abortion (principal); Z3A.00 Weeks of gestation of pregnancy not specified
CPT/HCPCS: 36415; 84702

== ENCOUNTER → 2019-05-19 17:09 | Outpatient (CLI) | payer OTHER, MEDICAID, SELFPAY ==
[2019-04-06 15:13] VITALS: BMI 26.0
[2019-05-19 17:58] LABS: hCG Titer Quant., Serum 1 mIU/mL (1-3)
== END ==
PROVIDERS: PCP Family Medicine; Referring Provider Obstetrics & Gynecology; Visit Provider Obstetrics & Gynecology
DX: O20.0 Threatened abortion (principal); Z3A.00 Weeks of gestation of pregnancy not specified
CPT/HCPCS: 36415; 84702

== ENCOUNTER → 2020-01-14 | Outpatient (CLI) | payer OTHER, MEDICAID, SELFPAY ==
[2020-01-14 13:57] VITALS: BMI 25.3
== END | disposition home or self-care (01) ==
LOC: LABSPEC 16:31
PROVIDERS: PCP Family Medicine; Visit Provider Nurse Practitioner Women's Health
DX: N94.9 Unspecified condition associated with female genital organs and menstrual cycle (principal)
CPT/HCPCS: 87070; 87077; 87205

== ENCOUNTER → 2020-03-07 13:05 | Outpatient (CLI) | payer OTHER, MEDICAID, SELFPAY ==
[2020-03-07 08:50] VITALS: BMI 24.0
[2020-03-07 18:04] LABS: Chlamydia Trachomatis by PCR Negative (Negative); Neisserai gonorrhoeae by PCR Negative (Negative); Probe Check PASS; Sample Adequacy Control PASS; Specimen Processing Control PASS
== END ==
PROVIDERS: PCP Family Medicine; Referring Provider Obstetrics & Gynecology; Visit Provider Obstetrics & Gynecology
DX: N89.8 Other specified noninflammatory disorders of vagina (principal); Z11.3 Encounter for screening for infections with a predominantly sexual mode of transmission
CPT/HCPCS: 87077; 87081; 87186; 87491; 87591

== ENCOUNTER → 2020-12-13 | Outpatient (CLI) | payer OTHER, MEDICAID, SELFPAY ==
[2020-12-13 16:44] LABS: Amphetamine Urine VISTA NEGATIVE (<1000 ng/mL); Barbiturate Urine VISTA NEGATIVE (< 200 ng/mL); Benzodiazepine Urine VISTA NEGATIVE (< 200 ng/mL); Cocaine Urine VISTA NEGATIVE (< 300 ng/mL); Ecstacy Urine VISTA NEGATIVE (< 500 ng/mL); Methadone Urine VISTA NEGATIVE (< 300 ng/mL); PCP Urine VISTA NEGATIVE (< 25 ng/mL); THC Urine VISTA NEGATIVE (< 50 ng/mL); Vista UDS pH Range 6
[2020-12-16 00:07] LABS: Chlamydia By Nucleic Acid AMP Negative (Negative)
[2020-12-16 09:12] LABS: Gonococcus By Nucleic Acid AMP Negative (Negative)
== END | disposition home or self-care (01) ==
LOC: LABSPEC 15:40
PROVIDERS: PCP Family Medicine; Referring Provider Obstetrics & Gynecology; Visit Provider Obstetrics & Gynecology
DX: Z34.90 Encounter for supervision of normal pregnancy, unspecified, unspecified trimester (principal)
CPT/HCPCS: 80307; 87086; 87088; 87491; 87591

== ENCOUNTER → 2020-12-27 07:59 | Outpatient (CLI) | payer OTHER, MEDICAID, SELFPAY ==
[2020-12-27 08:25] LABS: Absolute Lymphocyte Count 1.87 X10^3/uL (0.83-4.51); Absolute Neutrophil Count 7.8 X10^3/uL (2.0-7.7); Basophil# 0.05 X10^3/uL; Basophil% 0.5 % (0-1); Eosinophil# 0.12 X10^3/uL; Eosinophils% 1.2 % (0-5); Hematocrit 39.7 % (37-47); Hemoglobin 13.3 g/dL (12.0-15.0); Lymphocyte # 1.87 X10^3/ul (0.83-4.51); Lymphocyte % 17.9 % (19-41); Mean Corp Hgb Conc 33.5 g/dL (32-36); Mean Corpuscular Volume 92.5 fL (81-99); Mean Platelet Vol. 10.6 fl (6.2-12.0); Monocyte% 4.8 % (0-10); NRBC Flagged by Analyzer 0 % (0-5); Neutrophil # 7.83 X10^3/uL (2.7-7.7); Platelet Count 248 K/mm3 (150-450); RBC Distribution Width CV 11.8 % (11.6-14.6); RBC Distribution Width SD 39.8 fl (35.1-43.9); Red Blood Count 4.29 M/mm3 (4.2-5.4); White Blood Count 10.4 K/mm3 (4.4-11.0)
[2020-12-27 08:42] LABS: Glucose Challenge Gest 1H 50g 138 mg/dL (70-140)
[2020-12-27 09:19] LABS: NATERA MAILED SPECIMEN
[2020-12-27 09:23] LABS: HIV - WCH Non-Reactive (Nonreactive); Hepatitis B Surface Antigen Non-Reactive (Nonreactive); Hepatitis C Antibody Non-Reactive (Nonreactive); Rubella IgG Non-Reactive (Nonreactive); Syphilis Antibodies Non-reactive
== END ==
PROVIDERS: PCP Family Medicine; Referring Provider Obstetrics & Gynecology; Visit Provider Obstetrics & Gynecology
DX: O09.299 Supervision of pregnancy with other poor reproductive or obstetric history, unspecified trimester (principal); Z86.32 Personal history of gestational diabetes; Z3A.00 Weeks of gestation of pregnancy not specified
CPT/HCPCS: 36415; 82950; 85025; 86703; 86762; 86780; 86803; 86850; 86900; 86901; 87340

== ENCOUNTER → 2020-12-29 06:45 | Outpatient (CLI) | payer OTHER, MEDICAID, SELFPAY ==
[2020-12-29 07:47] LABS: Glucose GTT-Gestation. Fasting 86 mg/dL (<105)
[2020-12-29 09:42] LABS: Glucose GTT-Gestational 2 Hr 94 mg/dL (<165)
[2020-12-29 09:43] LABS: Glucose GTT-Gestational 1 Hr 134 mg/dL (<190)
[2020-12-29 10:51] LABS: Glucose GTT-Gestational 3 Hr 75 L (<145)
== END ==
PROVIDERS: PCP Family Medicine; Referring Provider Obstetrics & Gynecology; Visit Provider Obstetrics & Gynecology
DX: Z13.1 Encounter for screening for diabetes mellitus (principal)
CPT/HCPCS: 36415; 82951; 82952

== ENCOUNTER 2021-05-02 08:46 | Outpatient (CLI) | payer OTHER, MEDICAID, SELFPAY ==
[2021-05-02 10:19] LABS: Absolute Lymphocyte Count 2.17 X10^3/uL (0.83-4.51); Absolute Neutrophil Count 9.5 X10^3/uL (2.0-7.7); Basophil# 0.05 X10^3/uL; Basophil% 0.4 % (0-1); Eosinophil# 0.12 X10^3/uL; Hematocrit 34.6 % (37-47); Hemoglobin 11.7 g/dL (12.0-15.0); Lymphocyte # 2.17 X10^3/ul (0.83-4.51); Lymphocyte % 17.2 % (19-41); Mean Corp Hgb Conc 33.8 g/dL (32-36); Mean Corpuscular Hgb 31.9 pg (27.0-32.0); Mean Corpuscular Volume 94.3 fL (81-99); Mean Platelet Vol. 11.3 fl (6.2-12.0); Monocyte# 0.56 X10^3/uL; Monocyte% 4.4 % (0-10); NRBC Flagged by Analyzer 0 % (0-5); Neutrophil % 75.3 % (47-70); Platelet Count 219 K/mm3 (150-450); RBC Distribution Width CV 12.8 % (11.6-14.6); RBC Distribution Width SD 44.3 fl (35.1-43.9); Red Blood Count 3.67 M/mm3 (4.2-5.4); White Blood Count 12.6 K/mm3 (4.4-11.0)
[2021-05-02 10:30] LABS: Glucose GTT-Gestation. Fasting 82 mg/dL (<105)
[2021-05-02 10:33] LABS: Glucose GTT-Gestational 1 Hr 186 mg/dL (<190)
[2021-05-02 11:48] LABS: Glucose GTT-Gestational 2 Hr 191 mg/dL (<165)
[2021-05-02 12:36] LABS: Glucose GTT-Gestational 3 Hr 97 L (<145)
== END 2021-05-02 23:59 | disposition home or self-care (01) ==
LOC: LAB 08:47
PROVIDERS: PCP Family Medicine; Referring Provider Obstetrics & Gynecology; Visit Provider Obstetrics & Gynecology
DX: O26.892 Other specified pregnancy related conditions, second trimester (principal); Z67.91 Unspecified blood type, Rh negative; Z3A.00 Weeks of gestation of pregnancy not specified
CPT/HCPCS: 36415; 82951; 82952; 85025; 86850; 86900; 86901

== ENCOUNTER 2021-05-29 11:00 | Outpatient (RCR) | payer OTHER, MEDICAID, SELFPAY | END 2021-06-01 23:59 | LOC: DC 11:00 | PROVIDERS: PCP Family Medicine; Visit Provider Nurse Practitioner Women's Health | DX: O24.419 Gestational diabetes mellitus in pregnancy, unspecified control (principal) | CPT/HCPCS: 97802 ==

== ENCOUNTER 2021-05-30 16:26 | Outpatient (CLI) | payer OTHER, MEDICAID, SELFPAY ==
--- NOTE | 2021-05-30 16:31 | US_ITS ---
STUDY: SECOND AND THIRD TRIMESTER OBSTETRICAL ULTRASOUND - LIMITED REASON FOR EXAM: Female, 26 years old growth @ 32 LMP: October 18, 2020. PRIOR ULTRASOUND: None. Or none provided. TECHNICAL QUALITY: Adequate. FINDINGS: There is a single intrauterine fetus. The fetus is in a cephalic presentation. There is demonstrated cardiac activity with a heart rate of 126 bpm. There is a normal amniotic fluid volume. The largest amniotic fluid pocket measures 5.3 cm. The amniotic fluid index (LILIANA) is 15.74 cm. The placenta is posterior. There are Grade 2 placental changes. The cervix measures 3.4 cm in length. BIOMETRY: BPD: 7.8: 31 weeks, 2 days HC: 29.29: 32 weeks, 2 days AC: 30.02: 33 weeks, 6 days FL: 5.76: 30 weeks, 1 days Age by LMP: 31 weeks, 6 days. SHELLY by LMP: Jul 25 2021 age by current US: 31 weeks, 6 days. SHELLY by current US: Jul 26 2021. Estimated weight: 1999 grams, +/- 300 grams, 57 percentile. IMPRESSION:Single live fetus, symmetric measurements. No acute complications of identified. Electronically Signed: Lianna Delarosa MD at 20:17 EDT , US/OB Limited With Biometrics
== END 2021-05-30 23:59 | disposition home or self-care (01) ==
LOC: US 16:30
PROVIDERS: PCP Family Medicine; Referring Provider Nurse Practitioner Women's Health; Visit Provider Nurse Practitioner Women's Health
DX: O98.519 Other viral diseases complicating pregnancy, unspecified trimester (principal); U07.1 COVID-19
CPT/HCPCS: 76816

== ENCOUNTER → 2021-06-28 | Outpatient (CLI) | payer OTHER, MEDICAID, SELFPAY ==
--- NOTE | 2021-06-28 15:49 | US_ITS ---
STUDY: SECOND AND THIRD TRIMESTER OBSTETRICAL ULTRASOUND - LIMITED REASON FOR EXAM: Female, 26 years old. growth PRIOR ULTRASOUND: 3.29.22 TECHNIQUE: Transabdominal TECHNICAL QUALITY: Adequate. FINDINGS: There is a single intrauterine fetus. The fetus is in a cephalic presentation. There is demonstrated cardiac activity with a heart rate of 126 bpm. There is a normal amniotic fluid volume. The largest amniotic fluid pocket measures 4.8 cm. The amniotic fluid index (LILIANA) is 15.7 cm. The placenta is posterior in location and is not low lying. There are Grade 2 placental changes. The cervix measures cm in length: 3.4. BIOMETRY: BPD: 78 mm: 31 weeks, 2 days HC: 292 mm: 32 weeks, 2 days AC: 300 mm: 33 weeks, 6 days FL: 58 mm: 30 weeks, 1 days CI: 76 FL/AC: 19 FL/BPD: 74 HC/AC: 0.98 age by current US: 31 weeks, 6 days. SHELLY by current US: 5.25.22. Estimated weight: 1998 grams, +/- 300 grams, 57 %. Age by LMP: 32 weeks, 0 days. SHELLY by LMP: 5.24.22. US/OB Limited With Biometrics IMPRESSION: There is a single live intrauterine with a heart rate of 126 bpm. age by current US: 31 weeks, 6 days. SHELLY by current US: 5.25.22. Estimated weight: 1998 grams, +/- 300 grams, 57 %. Electronically Signed: Brennen Moreno MD at 16:58 EDT ,
== END | disposition home or self-care (01) ==
LOC: US 15:48
PROVIDERS: Referring Provider Obstetrics & Gynecology; Visit Provider Obstetrics & Gynecology
DX: U07.1 COVID-19 (principal)
CPT/HCPCS: 76816

== ENCOUNTER → 2021-06-30 | Outpatient (CLI) | payer OTHER, MEDICAID, SELFPAY | END | disposition home or self-care (01) | LOC: LABSPEC 16:34 | PROVIDERS: Visit Provider Obstetrics & Gynecology | DX: Z34.93 Encounter for supervision of normal pregnancy, unspecified, third trimester (principal) | CPT/HCPCS: 87081 ==

== ENCOUNTER 2021-07-19 10:00 | Inpatient (IN) | payer OTHER, MEDICAID, SELFPAY ==
[2021-07-19] VITALS (15 sets, daily range): BP systolic 86–113; BP diastolic 48–68; PULSE 61–95; RESP 14–18; TEMP 36.3–37.3; O2SAT 95–99; BMI 29.3
[2021-07-19] MEDS: Lactated Ringers 1,000 ML 999 ML IV (10:45)
[2021-07-19 11:11] LABS: Absolute Lymphocyte Count 2.15 X10^3/uL (0.83-4.51); Absolute Neutrophil Count 8.6 X10^3/uL (2.0-7.7); Basophil# 0.06 X10^3/uL; Basophil% 0.5 % (0-1); Eosinophil# 0.07 X10^3/uL; Eosinophils% 0.6 % (0-5); Hematocrit 34.6 % (37-47); Hemoglobin 11.5 g/dL (12.0-15.0); Lymphocyte # 2.15 X10^3/ul (0.83-4.51); Lymphocyte % 18.6 % (19-41); Mean Corp Hgb Conc 33.2 g/dL (32-36); Mean Corpuscular Hgb 31.3 pg (27.0-32.0); Mean Corpuscular Volume 94.3 fL (81-99); Mean Platelet Vol. 11.8 fl (6.2-12.0); Monocyte# 0.54 X10^3/uL; Monocyte% 4.7 % (0-10); NRBC Flagged by Analyzer 0 % (0-5); Neutrophil # 8.59 X10^3/uL (2.7-7.7); Neutrophil % 74.1 % (47-70); Platelet Count 180 K/mm3 (150-450); RBC Distribution Width CV 13.1 % (11.6-14.6); RBC Distribution Width SD 44.8 fl (35.1-43.9); Red Blood Count 3.67 M/mm3 (4.2-5.4); White Blood Count 11.6 K/mm3 (4.4-11.0)
[2021-07-19] MEDS: Sodium Citrate/Citric Acid 30 ML UDC PO (11:14)
[2021-07-19] MEDS: Acetaminophen 500 MG Tablet 1000 MG PO ×3 (11:14→22:49)
--- NOTE | 2021-07-19 11:15 | HP.PCM_ITS ---
History and Physical Date of Admission: 07/19/21 Date of Service: 07/13/21 MR#:[id number]:[id number]: XU CARMONA #:[id number] Provider:Dr. 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 Is patient in pain?: No Allergies No Known Allergies Allergy (Verified 07/13/21 14:22) Medications multivitamin no.47-iron fum 27 mg-folate no.1 1 mg-dha 300 mg capsule cap PO 11/29/20 [History Confirmed 07/13/21] acetaminophen 325 mg capsule 325 mg PO ONCE PRN 12/13/20 [History Confirmed 07/13/21] blood sugar diagnostic #100 ea 05/02/21 [Rx Confirmed 07/13/21] blood-glucose meter #1 ea 05/02/21 [Rx Confirmed 07/13/21] aspirin 81 mg tablet,delayed release 81 mg PO DAILY 05/08/21 [History Confirmed 07/13/21] hydroxyzine pamoate 50 mg capsule 50 mg PO TID-QID PRN #60 cap 06/02/21 [Rx Confirmed 07/13/21] sertraline 50 mg tablet 50 mg PO QDAY #30 tab 06/02/21 [Rx Confirmed 07/13/21] Last Menstral Period: 10/18/20 Zika: Zika virus screening: Negative : No PFSH PFSH Medical History Gestational diabetes Lab test positive for detection of COVID-19 virus Surgical History delivery delivered Saxis teeth extracted Family History Mother Brain tumor Grandmother Hypertension Grandfather Diabetes Social History household members: children number of children: 1 current occupational status: employed current occupation: [employer] pets and animals: No Smoking Status: Light Smoker (<10/day) Electronic Cigarette Use: with nicotine alcohol intake: current details: not while substance use type: does not use caffeine: Yes what type of physical activity do you participate in: walking seatbelt use: always do you feel safe at home: Yes additional social history: BF: Xu Pregancy History 3 Elective abortions Hx Para 1 Spontaneous abortions 1 Hx # Term Pregnancies 1 Ectopic pregnancies Hx # Pregnancies Multiple births # of living children 1 Past Pregnancies Del. Date Name GA/Weeks Outcome Route Bth Weight Infant Gen Labor Lgth Anesthesia Del Locatn Provider FOB 08/27/17 Kamilla Le 39 live - full term 7lbs 11oz Male spinal [facility] TRINI Xu Delivery Date: 08/27/17 Breech, GDM Abigail Maria HPI 38WK OB Details: XU CARMONA is a 26 year old who presents for routine OB visit. OB Visit SHELLY Calculator Estimated Delivery Date Method Current WG Current Estimate 07/25/21 LMP (Certain) 38w 2d Expected Delivery Route/Plan TOLAC patient counseled regarding risks/benefits of trial of labor versus repeat . ACOG/uptodate education given to patient. 75.8 % likelihood of success per calculator TOLAC consent form signed: [] Labor Preferences- labor support person: Xu labor intervention preferences: pain management options preferred: epidural cut cord/dad catch: cord : yes PP control planned: discussed discussed possible routes of delivery and associated risks: [] special requests: [] Specific Issue/Plans Covid status: non immune counseled regarding risk of covid in vs vaccination and declined vaccination Flu vaccine: decline Tdap vaccine: [] Rhogam: given 05/02/21 LARC form signed: yes Problem list reviewed and updated with the most current plan of care details and appropriate orders placed. Relevant counseling for the gestational age provided. Continue routine care and follow up unless otherwise noted in visit notes/problem list details Initial Weight: 155 lb Date EGA Weight BP Urine Prot Glucose FHR FuHt Pres Dilation Effaced St Visit Note 12/13/20 8w 0d 157 lb (+2 lb) 120/82 160 SM- CRL cons with LMP SM- CRL 1.4 cm cons with LMP 11/11/21 12w 2d 160 lb (+5 lb) 108/80 Negative Negative 153 JV- no lof, vaginal bleeding, or spotting. + cramping. ultrasound reassuring. labs reviewed 02/10/21 16w 3d 164 lb (+9 lb) 120/64 Negative Negative 145 SM- no vb lof cramping 03/06/21 19w 6d 166 lb (+11 lb) 100/72 Negative Negative 145 SM- no vb lof cramping 04/12/21 25w 1d 173 lb 2 oz (+18 lb 2 oz) 120/72 Negative Negative JV- pt prefers 3 hr gtt. no lof, vaginal bleeding, or dec fm. 04/25/21 27w 0d 174 lb 6 oz (+19 lb 6 oz) 126/78 Negative Negative 143 MH-work in for low BP this AM. WNL now. States migraine on 04/20 and since then feel foggy and like in a dream state and BP low. Enc small frequent meals, force fluids, avoid sugar/high carb foods. Consider some caffeine and activity to increase BP. No VB, LOF. Good Fm. Did consult with JV. 05/02/21 28w 0d 172 lb (+17 lb) 106/60 Negative Negative 165 28 MH-No VB,LOF. Good FM. Reviewed abnormal 3hr GTT today, supplies ordered. Reviewed check glucose qid. Ref to dietitian and Dr Dyer. Rhogam today, larc. Tdap next visit. Ordered 32 and 36wk growth US. 05/17/21 30w 1d 174 lb 8 oz (+19 lb 8 oz) 120/70 Negative Negative 153 30 JV- growth scan scheduled for 05/3006/02/21 32w 3d 170 lb (+15 lb) 150 32 Sm- no vb lof good fm no regular ctxx discussed anxiety symptoms counseling encouraged. 06/12/21 33w 6d 175 lb (+20 lb) 112/68 155 33 JV- no lof ,vaginal bleeding or cramping. pt states that fasting levels are normal but her 2 hr pp are starting to creep up. she will discuss tihs week with Dr. Dyer 06/30/21 36w 3d 120/70 135 36 Cephalic SM- no vb lof good fm n oregular ctx BS well controlled gbs done 07/07/21 37w 3d 181 lb 4 oz (+26 lb 4 oz) 110/72 Negative Negative 137 37 Cephalic 0 0 -4 JV- plan is to have a 39 week cs if no labor. no lof, vaginal bleeding, or dec fm. 07/13/21 38w 2d 183 lb (+28 lb) 116/78 Negative Negative 143 37 Cephalic 1 50 -3 JV- rpt section next week if no labor. labor precautions discussed. ACOG First Trimester First Trimester: Second Trimester Second Trimester: Signs and Symptoms of Labor, Selecting a care provider, Reproductive Life Planning & Contreception, Care Planning, Depression/Anxiety and Intimate Partner Violence; Discussed Tobacco Cessation Third Trimester Third Trimester: Pain Management Plans, Labor support person(s), Immediate Larc, Circumcision preference, Signs and Symptoms of Preeclampsia, Infant Feeding Yes and Family Medical Leave or Disability Forms Diagnostics Diagnostics Diagnostics: Blood Type A NEGATIVE Antibody Screen NEGATIVE Gest Glucose Tolerance MG/DL Hgb 11.7 g/dL (12.0-15.0) L Hct 34.6 % (37-47) L Details: HIV: Urine Culture: Sequential Screen: NIPT Screen: Results POC Urinalysis 2 Dip (Clinic) Office Urine Glucose Negative Last Edit by Andreia Rossi on 07/13/21 14:28 Office Urine Protein Negative Last Edit by Andreia Rossi on 07/13/21 14:28 Coding Level of Care Code OB Routine Diagnoses Anxiety F41.9 Gestational diabetes O24.410 Gestational diabetes mellitus control: diet-controlled Trimester: second trimester Lab test positive for detection of COVID-19 virus U07.1 Rh negative status during O26.892; Z67.91 Trimester: second trimester H/O section Z98.891 Supervision of other normal Z34.80 Z3A.38 Weeks of gestation: 38 weeks Assessment and Plan Assessment and Plan (1) Anxiety: Status: Acute Comment: zoloft, vistaril started at 32 weeks. counseling encouraged. (2) Gestational diabetes: Status: Acute Qualifiers: Gestational diabetes mellitus control: diet-controlled Trimester: second trimester Qualified Code(s): O24.410 - Gestational diabetes mellitus in , diet controlled Comment: diet controlled, endocrine following. (3) Lab test positive for detection of COVID-19 virus: Status: Acute Comment: 81mg asa 32 & 36 wk US, 05/30 nl growth 06/28 nl growth (4) Rh negative status during : Status: Acute Qualifiers: Trimester: second trimester Qualified Code(s): O26.892 - Other specified related conditions, second trimester; Z67.91 - Unspecified blood type, Rh negative Comment: rhogam at 28 weeks and PRN bleeding (5) H/O section: Status: Acute Comment: plan TOLAC. 75% success. prev cs for breech. RLTCS 07/19 @ 12 with JV (6) Supervision of other normal : Status: Acute Comment: PRR SHELLY: 07/25/21 boy Suresh PC: Kamilla BF: Xu (7) : Status: Acute Qualifiers: Weeks of gestation: 38 weeks Qualified Code(s): Z3A.38 - 38 weeks gestation of Comment: NIPT- low risk male declined carrier testing. afp screening declined. Anatomy US normal, gbs negative Plan Details Other Orders: Orders: POC Urinalysis 2 Dip (Clinic) Today UPDATE- I have seen the patient and performed any clinically relevant updates to the history and physical exam. Plan for repeat section today. Luly Hernandez DO
--- NOTE | 2021-07-19 11:15 | PCM.DC ---
Discharge Instructions Diet Discharge Diet: No restrictions Activity Discharge Activity: May Not Drive (for 2 weeks or while taking narcotic pain medications.), May Shower and May Take a Tub Bath (in 7 days.) May resume sexual activity in: 4-6 weeks Weight Bearing Status: Full weight bearing Lifting Restrictions: 20 pounds Dressing / Incision Call your doctor if your incision/area has: Continuous Slow Oozing, Sudden Increased Bleeding, Increased Pain/ Swelling, Increased Redness and Foul Smelling Discharge Call your doctor if you observe: Fever of 101 or Higher and Using more than 1 pad per hour Suture Line Care: Avoid Pulling/Pushing and Avoid Pinching/Bending Cleanse incision/area with: Soap & Water and Keep Dressing Clean & Dry Follow Up Care Please Follow Up With: Luly Hernandez DO When: Call [phone] to make an appointment for an incision check in 1-2 weeks. Test Results: Test results from this visit will be discussed in further detail at your follow-up appointment, if applicable. Discharge Plan Admission Admit Date/Time: 07/19/21 10:00 Primary Reason for Your Visit: section Attending Provider: Luly Hernandez Primary Care Provider: Care Physician,Zahida Primary Discharge Orders/Prescriptions Prescriptions: New ibuprofen 800 mg tablet 800 mg PO Q8H PRN (Reason: pain) 7 Days Qty: 30 RF: 0 oxycodone-acetaminophen [Percocet] 5-325 mg tablet 1 tab PO Q6H PRN (Reason: pain) 7 Days Qty: 30 RF: 0 Continued acetaminophen [Tylenol] 325 mg capsule 325 mg PO ONCE PRNRF: 0 PNV-DHA 27 mg iron-1 mg -300 mg capsule PO RF: 0 sertraline [Zoloft] 50 mg tablet 50 mg PO QDAY Qty: 30 RF: 12 hydroxyzine pamoate [Vistaril] 50 mg capsule 50 mg PO TID-QID PRN (Reason: anxiety) Qty: 60 RF: 4 Discontinued aspirin [Adult Low Dose Aspirin] 81 mg tablet,delayed release (DR/EC) 81 mg PO DAILY RF: 0 No Action (DME) True Metrix Glucose Test Strip Strip See Rx Instructions .ROUTE .MEDSUPPLY Qty: 100 RF: 4 (DME) blood-glucose meter [True Metrix Air Glucose Meter] Misc See Rx Instructions .ROUTE .MEDSUPPLY Qty: 1 RF: 0 Referrals / Follow Up: Care Physician,No Primary [Primary Care Provider] - Disposition Disposition (needs filled in before D/C Order can be placed): Home, Self Care
[2021-07-19 11:30] LABS: Bedside Glucose 145 mg/dL (74-106)
[2021-07-19] MEDS: Lactated Ringers 1,000 ML 150 ML IV (11:53)
[2021-07-19] MEDS: Cefazolin 2 GM in 0.9% Normal Saline 100 ML IV (12:27)
--- NOTE | 2021-07-19 13:14 | EX.PCM.OBRPT ---
Assessment & Plan (1) : QUALIFIERS: Weeks of gestation: 38 weeks Qualified Code(s): Z3A.38 - 38 weeks gestation of COMMENT: NIPT- low risk male declined carrier testing. afp screening declined. Anatomy US normal, gbs negative (2) Supervision of other normal : COMMENT: PRR SHELLY: 07/25/21 ольга Prince PC: Kamilla BF: Xu (3) H/O section: COMMENT: plan TOLAC. 75% success. prev cs for breech. RLTCS 07/19 @ 12 with JV (4) Rh negative status during : QUALIFIERS: Trimester: second trimester Qualified Code(s): O26.892 - Other specified related conditions, second trimester; Z67.91 - Unspecified blood type, Rh negative COMMENT: rhogam at 28 weeks and PRN bleeding (5) Anxiety: COMMENT: zoloft, vistaril started at 32 weeks. counseling encouraged. (6) Gestational diabetes: QUALIFIERS: Gestational diabetes mellitus control: diet-controlled Trimester: second trimester Qualified Code(s): O24.410 - Gestational diabetes mellitus in , diet controlled COMMENT: diet controlled, endocrine following. 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 Spinal anesthesia was placed without difficulty. Mcclure catheter was placed. The patient was placed in the dorsal supine position with leftward tilt. Patient was prepped and draped in the normal sterile fashion. Pfannenstiel skin incision was made with the scalpel and carried through to the underlying layer of fascia with the scalpel. Fascia was nicked in the midline and the incision extended laterally. The rectus bellies were dissected off superiorly and inferiorly with out complication both sharply and bluntly. The peritoneum was entered digitally. The incision was stretched and a low transverse uterine incision was made with the scalpel. The 's head was delivered atraumatically followed by the anterior and posterior shoulders without complication the rest of the delivered. The cord was clamped and cut and the infant was handed off to awaiting nurse. The placenta was delivered spontaneously immediately following and was noted to be intact and have a three-vessel cord. The uterus was exteriorized cleared of all clots and debris, and the incision was closed in a double layer closure using #1 Vicryl and #1 Monocryl. The ovaries and fallopian tubes were noted to be within normal limits. The uterus was returned to the maternal abdomen and gutters were cleared of all clots and debris. The peritoneum was closed with 3-0 Monocryl in a running fashion. Gloves were changed prior to fascial closure. Fascia was closed with 0 PDS in a running fashion. Subcutaneous tissue was copiously irrigated and the skin was closed with 3-0 Monocryl in a subcuticular fashion. Mepilex dressing was applied without complication. Patient was taken to recovery in stable condition. It was discussed with the patient that based on the clinical information obtained during this encounter, combined with her history, at this time I would recommend repeat section for future deliveries if further pregnancies are desired. Presentation: Positive for Vertex Amniotic Membrane Rupture Type: Artificial Amniotic Fluid Description: Clear Placental Delivery Description: Expressed Placenta Disposition: [facility] Cord Vessel Description: 3 Vessels Cord Entanglement: None and True Knot(s) (x1) Infant A Gender: Male Delayed Cord Clamping: Yes Complications Risks of Surgery Discussed w/Patient: Bleeding, Anesthesia Risks, Infection and Need for Future C-Sections Complications: none Multi Select Codes Urinary/Genital Urinary/Genital CPT Codes: 96850 Delivery [facility]
[2021-07-19] MEDS: Oxytocin 30 units/NS 500 ml 30 UNITS/500 ML IV.SOLN 167 UNITS IV (13:35)
[2021-07-19] MEDS: Ketorolac 30 MG/ML Syringe IV ×2 (13:56→19:59)
[2021-07-19] MEDS: Lactated Ringers 1,000 ML 100 ML IV (16:33)
[2021-07-19 16:35] LABS: Bedside Glucose 113 mg/dL (74-106)
[2021-07-19] MEDS: Sertraline 50 MG Tablet PO (22:49)
[2021-07-20 00:30] VITALS: BP 107/41; PULSE 70; RESP 18; TEMP 36.6; O2SAT 95
[2021-07-20] MEDS: 0.9% Saline Lock 10 ML Syringe IV ×2 (01:45→10:21)
[2021-07-20] MEDS: Ketorolac 30 MG/ML Syringe IV ×2 (01:46→10:21)
[2021-07-20 03:11] VITALS: BP 105/45; PULSE 58; RESP 16; TEMP 36.7
[2021-07-20] MEDS: Acetaminophen 500 MG Tablet 1000 MG PO ×2 (04:59→11:19)
[2021-07-20 05:15] LABS: Hematocrit 28.3 % (37-47); Hemoglobin 9.3 g/dL (12.0-15.0); Mean Corp Hgb Conc 32.9 g/dL (32-36); Mean Corpuscular Hgb 31.1 pg (27.0-32.0); Mean Corpuscular Volume 94.6 fL (81-99); Mean Platelet Vol. 11.4 fl (6.2-12.0); Platelet Count 181 K/mm3 (150-450); RBC Distribution Width CV 13.2 % (11.6-14.6); RBC Distribution Width SD 45.4 fl (35.1-43.9); Red Blood Count 2.99 M/mm3 (4.2-5.4); White Blood Count 21.3 K/mm3 (4.4-11.0)
[2021-07-20 05:16] LABS: Bedside Glucose 82 mg/dL (74-106)
--- NOTE | 2021-07-20 07:30 | PN.OBGYN_ITS ---
Subjective Subjective Patient is laying in bed comfortably without complaints. She states that she slept on an off during the night. Lochia is mild and pain is minimal. Objective Data Objective Data Vital Signs: Vital Signs Temp Pulse Resp BP Pulse Ox 98.1 F 58 L 16 105/45 L 95 07/20/21 03:11 07/20/21 03:11 07/20/21 03:11 07/20/21 03:11 07/20/21 00:30 Oxygen Delivery Method Room Air Weight: 181 lb 10.574 oz Body Mass Index (BMI) 29.3 Intake & Output: Intake and Output for Last 24 Hours 07/18/21 07/19/21 07/20/21 23:59 23:59 23:59 Intake Total 3284.89 / 3284.89 Output Total 850 / 850 200 / 200 Balance 2434.89 / 2434.89 -200 / -200 Lab / Micro Data Result Diagrams: 07/20/21 05:05 Labs: Laboratory Results - last 24 hr 07/19/21 10:45: WBC 11.6 H, RBC 3.67 L, Hgb 11.5 L, Hct 34.6 L, MCV 94.3, MCH 31.3, MCHC 33.2, RDW Std Deviation 44.8 H, RDW Coeff of Nina 13.1, Plt Count 180, MPV 11.8, Immature Gran % (Auto) 1.500 H, Neut % (Auto) 74.1 H, Lymph % (Auto) 18.6 L, [place] % (Auto) 4.7, Eos % (Auto) 0.6, Baso % (Auto) 0.5, Absolute Neuts (auto) 8.6 H, Absolute Lymphs (auto) 2.15, Nucleated RBC % 0 07/19/21 10:45: Blood Type A NEGATIVE, Antibody Screen NEGATIVE 07/19/21 11:20: POC Glucose 145 H 07/19/21 15:00: Screen NEGATIVE, Baby's Blood Type A POSITIVE, Baby's PONCHO NEGATIVE 07/19/21 16:24: POC Glucose 113 H 07/20/21 05:05: WBC 21.3 H, RBC 2.99 L, Hgb 9.3 L, Hct 28.3 L, MCV 94.6, MCH 31.1, MCHC 32.9, RDW Std Deviation 45.4 H, RDW Coeff of Nina 13.2, Plt Count 181, MPV 11.4 07/20/21 05:09: POC Glucose 82 Micro: Microbiology 07/19/21 11:10 Nasal Secretion SARS-CoV-2 Antigen (Rapid) - Final ROS Constitutional Constitutional: Reports systems reviewed and no addt'l complaints, except as documented Cardiovascular Cardiovascular: Denies chest pain, dizziness, dyspnea or irregular heart rhythm Respiratory/Chest Respiratory/Chest: Denies cough, pain on inspiration or shortness of breath at rest Gastrointestinal Gastrointestinal: Denies abdominal pain, nausea or vomiting Genitourinary Genitourinary: Denies burning urination Musculoskeletal Musculoskeletal: Denies muscle cramps, muscle spasms or muscle weakness Neurologic Neurologic: Denies confusion, dizziness, headache(s) or lack of coordination Psychiatric Psychiatric: Denies anxiety, behavioral changes or depression Physical Exam HEENT normocephalic Resp normal respiratory effort and normal air movement GI soft to palpation, non-tender and non-distended Rectal Exam: other Other Details: Incision is clean, dry, and intact no CVA tenderness Extremity normal to inspection General Extremity: edema bilateral (trace ) Assessment & Plan (1) Status post delivery: COMMENT: rod YARBROUGH PLAN: s/p LTCS PPD # 1 1. routine post care 2. breast feeding- support given 3. rh positive 4. rubella immune 5. dc to home today
[2021-07-20 09:41] VITALS: BP 98/50; PULSE 70; RESP 16; TEMP 36.8
[2021-07-20] MEDS: Senna/Docusate Sodium 1 Tablet PO (11:20)
[2021-07-20 14:30] VITALS: BP 95/43; PULSE 71; RESP 16; TEMP 36.8; O2SAT 97
[2021-07-20] MEDS: Ibuprofen 600 MG Tablet PO (14:49)
== END 2021-07-20 16:10 | disposition home or self-care (01) | DRG 788 ==
PROVIDERS: Admitting Provider Obstetrics & Gynecology; Visit Provider Obstetrics & Gynecology
PROC: 10D00Z1 Extraction of Products of Conception, Low, Open Approach (ICD-10-PCS; CPT 59514; principal; 2021-07-19 11:45)
DX: O34.219 Maternal care for unspecified type scar from previous cesarean delivery (principal); O24.410 Gestational diabetes mellitus in pregnancy, diet controlled; F17.200 Nicotine dependence, unspecified, uncomplicated; F41.9 Anxiety disorder, unspecified; O26.893 Other specified pregnancy related conditions, third trimester; Z86.16 Personal history of COVID-19; Z67.91 Unspecified blood type, Rh negative; O99.344 Other mental disorders complicating childbirth; Z79.899 Other long term (current) drug therapy; O99.334 Smoking (tobacco) complicating childbirth; Z37.0 Single live birth; Z3A.39 39 weeks gestation of pregnancy
CPT/HCPCS: 59050; 82962; 85025; 85027; 85461; 86850; 86900; 86901; 87426; 90384; 99218; 99251; J7120; A4216; G0378; G0463; J2405; J2790